=== PATIENT | male | born 1965 | race Caucasian/White ===

== ENCOUNTER 2019-05-14 05:37 | Day surgery (SDC) | payer OTHER ==
[2019-05-14] VITALS (11 sets, daily range): BP systolic 90–128; BP diastolic 60–85; PULSE 74–82; RESP 15–25; Ht 177.8 cm; Wt 124.3 kg
[~2019-05-14] VITALS: Ht 177.8 cm; Wt 124.3 kg
--- NOTE | 2019-05-14 06:47 | PREAC ---
Date/Time of Note Date/Time of Note DATE: 05/14/19 TIME: 06:45 Anesthesia Eval and Record Evaluation Time Pre-Procedure Interview DATE: 05/14/19 TIME: 06:45 Age 54 Sex male NPO: 8 hrs Preoperative diagnosis hemorrhoids Planned procedure total internal and external hemorrhoidectomy with laeral internal sphincterectomy Past Medical History Past Medical History: Includes Cardio: HTN, Dyslipidemia, CAD (s/p CABG 4 vessel 2006. Visited car detail[facility] 2 months ago and was told "normal" stress test. Able to climb 2 FOS without CP, SOB, palpitation.), CABG (2006) Pulm: Sleep Apnea (getting tested next month) Musculoskeletal: Osteoarthritis (s/p bilaeral knee meniscectomies) GI: Morbid obesity Surgery & Anesthesia Issues No known issue Meds Anticoagulation: No Beta Kita within 24 hr: Yes Meds reviewed: Yes Allergies Allergies Reviewed: Yes Labs/Studies Labs Reviewed: Reviewed by anesthesiologist test: N/A Studies: ECG, CXR Pre-procedure Exam Airway: Adequate mouth opening, Adequate thyromental dist Mallampati: Mallampati II Teeth: Normal Lung: Normal Heart: Normal ASA Physical Status ASA physical status: 3 Emergency: None Planned Anesthetic General/MAC: ETT Planned Pain Management Parenteral pain med, Local by surgeon Pre-operative Attestations Prior to commencing anesthesia and surgery, the patient was re-evaluated, there was verification of: *The patient's identity *The results of appropriate recent lab work and preoperative vital signs *The above evaluation not changing prior to induction *Anesthetic plan, risk benefits, alternative and complications discussed with patient/family; questions answered; patient/family understands, accepts and wishes to proceed. DAVID DAN May 14, 2019 06:47
[2019-05-14] MEDS ORDERED: BUPIVACAINE 0.25% (MPF) 30 ML INJ ONE (06:53)
[2019-05-14] MEDS ORDERED: ATOR40TA68 PO (07:01)
[2019-05-14] MEDS ORDERED: ASPI81TA52 PO (07:02)
[2019-05-14] MEDS ORDERED: CARV6.2579 PO (07:02)
[2019-05-14] MEDS ORDERED: SUCCINYLCHOLINE CHLORIDE 100 MG/5 ML SYG IV ONE (07:12)
[2019-05-14] MEDS ORDERED: PROPOFOL 20 ML ONE (07:12)
[2019-05-14] MEDS ORDERED: LIDOCAINE 2% (SDV) 5 ML INJ ONE (07:12)
[2019-05-14] MEDS ORDERED: FENTAnyl 50 MCG/ML VIAL ONE (07:12)
[2019-05-14] MEDS ORDERED: ROCURONIUM 50 MG INJ ONE (07:12)
[2019-05-14] MEDS ORDERED: LIDOCAINE 4% (MPF) 5 ML INJ ONE (07:18)
--- NOTE | 2019-05-14 07:28 | HPN ---
Date/Time of Note Date/Time of Note DATE: 05/14/19 TIME: 07:28 Interval H&P Admission Note Pt. seen H&P reviewed: No system changes ASHLEY JACKSON MD May 14, 2019 07:28
[2019-05-14] MEDS ORDERED: DEXAMETHASONE 4 MG/ML 5 ML INJ ONE (07:50)
[2019-05-14] MEDS ORDERED: METOCLOPRAMIDE 10 MG INJ ONE (07:50)
[2019-05-14] MEDS ORDERED: FAMOTIDINE 20 MG INJ ONE (07:50)
[2019-05-14] MEDS ORDERED: ONDANSETRON 4 MG INJ ONE (07:50)
[2019-05-14] MEDS ORDERED: SUGAMMADEX SODIUM 200 MG/2 ML VIAL IV ONE (07:54)
[2019-05-14] MEDS ORDERED: EPHEDrine 25 MG/5 ML SYG ONE (08:01)
[2019-05-14] MEDS ORDERED: CEFAZOLIN 1 GM INJ ONE (08:01)
[2019-05-14] MEDS ORDERED: OXYCODONE/ACETAMINOPHEN (5/325) TAB PO PRN ×4 (08:30→09:00)
[2019-05-14] MEDS ORDERED: morphine 2 MG INJ IV PRN (08:30)
[2019-05-14] MEDS ORDERED: ONDANSETRON 4 MG INJ IV PRN ×2 (08:30→09:00)
--- NOTE | 2019-05-14 08:32 | OPR ---
Date/Time of Note Date/Time of Note DATE: 05/14/19 TIME: 08:24 Operative Report Procedure Date: May 14, 2019 Preoperative Diagnosis 1. Second-degree hemorrhoids 2. Posterior anal fissure Postoperative Diagnosis 1. Second-degree hemorrhoids 2. Posterior anal fissure 3. Anal fistula Operation/Procedure Performed 1. External hemorrhoidectomy and thermal ablation of internal hemorrhoids 2. Lateral internal sphincterotomy 3. Anal fistulotomy Surgeon Ashley Jackson MD Cloth Grader Supervisor None Second Cloth Grader Supervisor: A Anesthesia Type: general Anesthesiologist: LILLI CUEVA Estimated Blood Loss: minimal Transfusion none Specimen External hemorrhoid Grafts/Implants none Tubes/Drains None Complications none Pt Condition Post Procedure: stable Disposition: PACU Indications Symptomatic with rectal pain Procedure Description After satisfactory general anesthesia was achieved, the patient was placed in John stirrups and the perineum was prepped and draped. A 14 cm [place] retractor was used and secured into place with 4 hooks. A rectal speculum was inserted and opened. There were several small internal hemorrhoids. There was an external hemorrhoid at 12:00. There was a posterior anal fissure. 3 mm below this was a superficial anal fistula. A lateral internal sphincterotomy was performed first. The rectal speculum was inserted and opened vertically. A 15 mm scalpel was inserted between the internal and external sphincters at 3:00. The scalpel was turned inward lysing the internal sphincter. The scalpel was removed and the skin opening was oversewn with a [id number] suture of 2-0 chromic. Next the external hemorrhoid at 12:00 was excised with a small LigaSure device. Internal hemorrhoids circumferentially were ablated with electrocautery. The small superficial anal fistula at 6:00 was opened by placing a probe at the external orifice and exiting in the internal orifice. The skin over the probe was divided with electrocautery achieving a fistulotomy. Hemostasis was completed with electrocautery. The wound was infiltrated with 20 cc of 0.25% plain Marcaine. The [place] retractor was removed and a dressing was applied. Sponge and needle counts were reported as correct x2. ASHLEY JACKSON MD May 14, 2019 08:32
[2019-05-14] MEDS ORDERED: LABETALOL HCL 20MG INJ IV PRN (09:00)
[2019-05-14] MEDS ORDERED: HYDROmorphONE 1 MG/5 ML IV SYRINGE IV PRN ×3 (09:00)
[2019-05-14] MEDS ORDERED: MEPERIDINE 25 MG INJ IV PRN (09:00)
[2019-05-14] MEDS ORDERED: ALBUTEROL 0.083% (NEB) 2.5 MG/3 ML AMP HHN PRN (09:00)
[2019-05-14] MEDS ORDERED: hydrALAzine 20 MG INJ IV PRN (09:00)
--- NOTE | 2019-05-14 09:38 | PAC ---
Date/Time of Note Date/Time of Note DATE: 05/14/19 TIME: 09:37 Post-Anesthesia Notes Post-Anesthesia Note Last documented vital signs Vital Signs Date Temp Pulse Resp B/P (MAP) Pulse Ox O2 O2 Flow FiO2 Time Delivery Rate 05/14/19 76 15 107/76 91 Room Air 09:16 (86) 05/14/19 97.8 08:36 Activity: WNL Respiratory function: WNL Cardiovascular function: WNL Mental status: Baseline Pain reasonably controlled: Yes Hydration appropriate: Yes Nausea/Vomiting absent: Yes DAVID DAN May 14, 2019 09:38
== END 2019-05-14 10:33 | disposition home or self-care (01) ==
LOC: SDS 05:37
PROVIDERS: ATTEND Surgery
DX: K64.1 Second degree hemorrhoids (principal); K64.4 Residual hemorrhoidal skin tags; K60.2 Anal fissure, unspecified; I10 Essential (primary) hypertension; E78.5 Hyperlipidemia, unspecified; E66.09 Other obesity due to excess calories
CPT/HCPCS: 46250; 46930; J0690; J1100; J2405; J2765; J3010; Z7610; 88304